=== PATIENT | male | born 1970 | race Caucasian/White ===

== ENCOUNTER → 2023-08-11 11:24 | Outpatient (CLI) | payer OTHER, SELFPAY ==
--- NOTE | 2023-08-11 11:28 | DI.RAD.S_ITS ---
PROCEDURE: XR KNEE RT 3V INDICATIONS: right knee swelling TECHNIQUE: 3 views of the knee were acquired. COMPARISON: None. FINDINGS: Bones: No fractures or dislocations. No suspicious bony lesions. Medial tibiofemoral joint space narrowing with mild osteophytic lipping. Soft tissues: Moderate joint effusion. No suspicious soft tissue calcifications. IMPRESSION: Moderate knee joint effusion without acute bony abnormality. Dictated by: Miguel May M.D. on 08/11/2023 at 13:29 Approved by: Miguel May M.D. on 08/11/2023 at 13:29
== END ==
LOC: RAD 11:28
PROVIDERS: PCP Family Medicine; Referring Provider Nurse Practitioner Family; Visit Provider Nurse Practitioner Family
DX: M25.461 Effusion, right knee (principal)
CPT/HCPCS: 73562

== ENCOUNTER → 2023-12-16 14:44 | Outpatient (CLI) | payer OTHER, SELFPAY ==
--- NOTE | 2023-12-16 14:45 | DI.ECHO.S_ITS ---
[place] +---------+ Hospital : : [address] : : [place] : : [id number] : : Phone: [phone] Echocardiogram Report + + :Name: RUPAL DE ANDA Study Date: 12/16/2023 Height: 70 in : :[facility] ReadingLocation: Weight: 194 lb : : Gender: Male BSA: 2.1 m2 : :: 1970 Age: 53 yrs BP: 124/81 mmHg: :Reason For Study: ISCHEMIC CARDIOMYOPATHY : :Ordering Physician: MALACHI, : :ANJANA Performed By: Jimi Avelar : :Referring: ANJANA PEÑA : + + Interpretation Summary The ejection fraction is estimated to be 40-45%. Basal inferior wall is thinned out and akinetic. Mild inferolateral hypokinesis in the basal segments. There is mild mitral regurgitation. Procedure: A two-dimensional transthoracic echocardiogram with color flow and Doppler was performed. The study quality was technically adequate. Comparison is made with the echocardiogram of 08/18/2023. The patient was in sinus rhythm with heart rates between 54-69 bpm during the exam. Left Ventricle: The left ventricle is normal in size and wall thickness. The ejection fraction is estimated to be 40-45%. Left ventricular systolic function has slightly improved compared to the previous exam. Basal inferior wall is thinned out and akinetic. Mild inferolateral hypokinesis in the basal segments. Right Ventricle: The right ventricle is normal size. Right ventricular systolic function is borderline reduced. Atria: The left atrial size is normal. Right atrial size is normal. The interatrial septum grossly appears intact with no obvious evidence for an atrial septal defect. Mitral Valve: The mitral valve is normal. There is no mitral valve stenosis. There is mild mitral regurgitation. Aortic Valve: The aortic valve is trileaflet. There is no aortic valve stenosis. No aortic regurgitation is present. Tricuspid Valve: The tricuspid valve is normal. There is no tricuspid stenosis. No tricuspid regurgitation. Pulmonic Valve: The pulmonic valve is not well visualized. There is no pulmonic valvular stenosis. There is mild pulmonic regurgitation. Great Vessels: The aortic root is normal size. The dimensions of the ascending aorta are normal. The IVC is of normal diameter and collapses greater than 50% with a sniff. This suggests a low right atrial pressure of 3 mm Hg. Pericardium/ Pleura There is no pericardial effusion. There is no pleural effusion. MMode/2D Measurements & Calculations LVIDd: 5.1 cm LVOT diam: 2.0 cm LVIDs: 4.3 cm Ao root diam: 3.6 cm FS: 16.9 % asc Aorta Diam: 3.4 cm IVSd: 1.1 cm LVPWd: 1.0 cm LV rosado. diameter/BSA (cm/m^2): 2.5 LV sys. diameter/BSA (cm/m^2): 2.1 LA A2 area: 17.1 cm2 RA long axis: 4.5 cm LA A4 area: 14.1 cm2 RA area: 14.8 cm2 LA length (vol): 4.2 cm RA vol: 41.6 ml LA vol: 48.6 ml RA : 20.2 ml/m2 LA vol index: 23.6 ml/m2 IVC diam: 1.5 cm RVD1 (basal): 3.4 cm RVD2 (mid): 3.0 cm TAPSE: 1.8 cm Doppler Measurements & Calculations Ao V2 max: 99.7 cm/sec LVOT Max Ivan: 84.5 cm/sec Ao V2 mean: 68.1 cm/sec LV V1 max P.9 mmHg Ao max P.0 mmHg LV V1 VTI: 17.0 cm Ao mean P.1 mmHg DEYANIRA(I,D): 2.8 cm2 Ao V2 VTI: 19.4 cm DEYANIRA(V,D): 2.7 cm2 sev ratio: 0.87 DEYANIRA indexed to BSA (cm^2/m^2): 1.4 MV E max ivan: 64.8 cm/sec PA V2 max: 84.8 cm/sec MV A max ivan: 75.5 cm/sec PA V2 mean: 60.0 cm/sec MV E/A: 0.86 PA mean P.6 mmHg Med Peak E' Ivan: 6.1 cm/sec PA pr(Accel): 22.5 mmHg E/E' med: 10.6 Lat Peak E' Ivan: 7.1 cm/sec E/E' lat: 9.1 E/e' average: 9.8 MV dec time: 0.13 sec SV(LVOT): 54.7 ml Reading Physician:04:09 PM
== END ==
PROVIDERS: PCP Family Medicine; Referring Provider Nurse Practitioner Acute Care; Visit Provider Nurse Practitioner Acute Care
DX: I34.0 Nonrheumatic mitral (valve) insufficiency (principal); I37.1 Nonrheumatic pulmonary valve insufficiency; I25.5 Ischemic cardiomyopathy
CPT/HCPCS: 93306

== ENCOUNTER → 2024-11-30 10:26 | Outpatient (CLI) | payer OTHER, SELFPAY ==
--- NOTE | 2024-11-30 10:27 | DI.ECHO.S_ITS ---
[place] +---------+ Hospital : : [address] : : [place] : : [id number] : : Phone: [phone] Echocardiogram Report + + :Name: RUPAL DE ANDA Study Date: 11/30/2024 Height: 70 in : :[facility] ReadingLocation: Weight: 190 lb : : Gender: Male BSA: 2.0 m2 : :: 1970 Age: 54 yrs BP: 122/82 mmHg: :Reason For Study: CARDIOMYOPATHY : :Ordering Physician: YADIRA, : :CORTNEY Macias Performed By: Jimi Avelar : :Referring: CORTNEY PARIKH : + + Interpretation Summary The patient was in sinus bradycardia with heart rates between 51-58 bpm during the exam. The ejection fraction is estimated to be 45-50%. There is severe hypo to akinesis of the inferior and mid inferolateral garner. Grade I diastolic dysfunction. The right ventricle is normal in size and function. No significant valvulopathy. Pulmonary artery pressures cannot be estimated because of the lack of a measurable TR jet velocity but the IVC suggests a CVP of around 3 mmHg. Procedure: A two-dimensional transthoracic echocardiogram with color flow and Doppler was performed. The study quality was technically good. Comparison is made with the echocardiogram of 12/16/2023. The patient was in sinus bradycardia with heart rates between 51-58 bpm during the exam. Left Ventricle: The left ventricle is normal in size. Left ventricular wall thickness is borderline increased. Proximal septal thickening is noted. There is no ventricular septal defect visualized. The ejection fraction is estimated to be 45-50%. There is severe hypo to akinesis of the inferior and mid inferolateral garner. Diastolic parameters suggest a relaxation abnormality of the left ventricle, consistent with probable normal filling pressures. Right Ventricle: The right ventricle is normal in size and function. Atria: The left atrial size is normal. Right atrial size is normal. There is no Doppler evidence for an interatrial shunt. Mitral Valve: The mitral valve leaflets appear normal. There is no evidence of stenosis, fluttering, or prolapse. There is trace mitral regurgitation. Aortic Valve: The aortic valve opens well. There is no aortic valve stenosis. No aortic regurgitation is present. Tricuspid Valve: The tricuspid valve leaflets are thin and pliable. No tricuspid regurgitation. Pulmonary artery pressures cannot be estimated because of the lack of a measurable TR jet velocity but the IVC suggests a CVP of around 3 mmHg. Pulmonic Valve: The pulmonic valve is not well seen, but is grossly normal. There is trace pulmonic regurgitation. Great Vessels: The aortic root is mildly dilated. The dimensions of the ascending aorta are normal. The pulmonary artery is normal size. The IVC is of normal diameter and collapses greater than 50% with a sniff. This suggests a low right atrial pressure of 3 mm Hg. Pericardium/ Pleura There is no pericardial effusion. There is no pleural effusion. MMode/2D Measurements & Calculations LVIDd: 4.8 cm LVOT diam: 2.2 cm LVIDs: 3.7 cm Ao root diam: 3.8 cm FS: 21.7 % asc Aorta Diam: 3.6 cm EPSS: 0.65 cm IVSd: 1.1 cm LVPWd: 1.00 cm LV rosado. diameter/BSA (cm/m^2): 2.3 LV sys. diameter/BSA (cm/m^2): 1.8 LA A2 area: 16.9 cm2 RA long axis: 4.6 cm LA A4 area: 14.8 cm2 RA area: 14.4 cm2 LA length (vol): 4.4 cm RA vol: 38.4 ml LA vol: 47.8 ml RA : 18.8 ml/m2 LA vol index: 23.4 ml/m2 IVC diam: 1.3 cm RVD1 (basal): 3.1 cm RVD2 (mid): 3.0 cm TAPSE: 2.3 cm Doppler Measurements & Calculations Ao V2 max: 97.4 cm/sec LVOT Max Ivan: 83.9 cm/sec Ao V2 mean: 75.3 cm/sec LV V1 max P.8 mmHg Ao max P.8 mmHg LV V1 VTI: 17.8 cm Ao mean P.4 mmHg DEYANIRA(I,D): 2.9 cm2 Ao V2 VTI: 22.4 cm DEYANIRA(V,D): 3.1 cm2 sev ratio: 0.80 DEYANIRA indexed to BSA (cm^2/m^2): 1.4 MV E max ivan: 58.1 cm/sec PA V2 max: 74.8 cm/sec MV A max ivan: 65.4 cm/sec PA V2 mean: 49.6 cm/sec MV E/A: 0.89 PA mean P.1 mmHg Med Peak E' Ivan: 4.5 cm/sec PA pr(Accel): 31.0 mmHg E/E' med: 13.1 Lat Peak E' Ivan: 6.5 cm/sec E/E' lat: 9.0 E/e' average: 11.0 MV dec time: 0.19 sec SV(LVOT): 65.0 ml Reading Physician:09:03 PM
== END ==
PROVIDERS: PCP Family Medicine; Referring Provider Internal Medicine Cardiovascular Disease; Visit Provider Internal Medicine Cardiovascular Disease
DX: I25.5 Ischemic cardiomyopathy (principal); I77.810 Thoracic aortic ectasia
CPT/HCPCS: 93306